=== PATIENT | female | born 1935 | race Caucasian/White ===

== ENCOUNTER 2017-11-30 21:15 | Observation (INO) | payer OTHER, MEDICARE ==
[~2017-11-30] VITALS: Ht 172.7 cm; Wt 106.7 kg
--- NOTE | 2017-11-30 21:26 | ED GI/GU/ABDOMINAL COMPLAINT ---
History of Present Illness General Chief Complaint: Nausea, Vomiting, Diarrhea Stated Complaint: VOMITING Source: patient Exam Limitations: no limitations Vital Signs & Intake/Output Vital Signs & Intake/Output Vital Signs Date Time Temp Pulse Resp B/P B/P Pulse O2 O2 Flow FiO2 Mean Ox Delivery Rate 12/01 0001 98.8 80 18 138/72 95 Room Air 11/300 98.6 82 18 116/58 96 Room Air Allergies Coded Allergies: Penicillins (UNKNOWN 11/30/17) Sulfa (Sulfonamide Antibiotics) (UNKNOWN 11/30/17) Tetracyclines (UNKNOWN 11/30/17) celecoxib (From CELEBREX) (UNKNOWN 11/30/17) cyclobenzaprine (From FLEXERIL) (UNKNOWN 11/30/17) hydrochlorothiazide (From DYAZIDE) (UNKNOWN 11/30/17) triamterene (From DYAZIDE) (UNKNOWN 11/30/17) Triage Note: [facility]IB[facility] WITH C/O VOMITING AND LOOSE STOOOLS X2 DAYS. PT REPORTS SEVERAL EPISODES OF VOMITING TODAY AND YESTERDAY, UNABLE TO KEEP FOOD/LIQUIDS DOWN. PT ALSO REPORTS INCONTINENT FREQUENT LOOSE STOOLS. DENIES ABD PAIN,CP, SOB. REPORTS WEAKNESS AND MILD DIZZINESS Triage Nurses Notes Reviewed? yes ? N Is pt currently ? No Onset: Gradual Duration: day(s): Timing: recent history Quality/Severity: vomiting Location: generalized abdomen Radiation: no radiation Associated Symptoms: nausea/vomiting HPI: 82 yo woman with severe diarrhea x 1 day, watery, without blood. She notes also vomiting that began 2 days ago, unrelenting. "I can't keep anything down." She notes no fever, chills, dysuria, chest pain. She is otherwise well. Past History Travel History Traveled to [place] past 21 day No Medical History Any Pertinent Medical History? see below for history Cardiovascular: hypertension Gastrointestinal: diverticulosis Endocrine: diabetes Surgical History Surgical History: appendectomy, cholecystectomy Family History Hx Contributory? No Review of Systems Review of Systems Constitutional: Reports: no symptoms. EENTM: Reports: no symptoms. Respiratory: Reports: no symptoms. Cardiovascular: Reports: no symptoms. GI: Reports: no symptoms. Genitourinary: Reports: no symptoms. Musculoskeletal: Reports: no symptoms. Skin: Reports: no symptoms. Neurological/Psychological: Reports: no symptoms. Hematologic/Endocrine: Reports: no symptoms. Immunologic/Allergic: Reports: no symptoms. All Other Systems: Reviewed and Negative Physical Exam Physical Exam Gastrointestinal: normal bowel sounds, soft, non-tender, see below Comments: Review of Systems - except as otherwise noted in HPI Physical Exam Physical Exam General Appearance: well developed/nourished, no apparent distress Head: atraumatic, normal appearance Eyes: Bilateral: normal appearance. Ears, Nose, Throat: normal pharynx, normal ENT inspection Neck: normal inspection, supple, full range of motion Respiratory: normal breath sounds, chest non-tender, no respiratory distress, quiet respiration, lungs clear Cardiovascular: regular rate/rhythm Gastrointestinal: normal bowel sounds, soft, non-tender, no organomegaly Back: normal inspection, normal range of motion Extremities: normal inspection, normal capillary refill, normal range of motion, no edema Neurologic/Psych: no motor/sensory deficits, awake, alert, oriented x 3 Skin: intact, normal color, warm/dry Core Measures ACS in differential dx? No Sepsis Present: No Sepsis Focused Exam Completed? No Progress Differential Diagnosis: viral syndrome vs food poisoning vs other. Plan of Care: Orders Procedure Date/time Status Clear Liquid Diet 12/01 B Active Patient Data 12/02 27 Active Saline Lock 12/[address] in observation 12/01 24 Active Misc Message 12/01 24 Active ED Holding Orders 12/01 24 Active Vital Signs 12/01 24 Active Code Status 12/01 24 Active TROPONIN LEVEL 11/30 2126 Complete LIPASE 11/30 2126 Complete HEPATIC FUNCTION PANEL 11/30 2126 Complete CBC WITHOUT DIFFERENTIAL 11/30 2126 Complete BASIC METABOLIC PANEL 11/30 2126 Complete AMYLASE 11/30 2126 Complete EKG 11/30 2126 Active Laboratory Tests 11/30/17 2140: Anion Gap 15, Estimated GFR 43 L, BUN/Creatinine Ratio 21.7, Glucose 155 H, Calcium 10.4 H, Total Bilirubin 0.6, Direct Bilirubin 0.2, AST 21, ALT 36, Alkaline Phosphatase 55, Troponin I < 0.01, Total Protein 6.5, Albumin 4.0, Amylase 50, Lipase 37, CBC w Diff NO MAN DIFF REQ, RBC 4.58, MCV 90.8, MCH 30.2, MCHC 33.3, RDW 13.9, MPV 7.3 L, Gran % 84.7 H, Lymphocytes % 10.3 L, Monocytes % 4.6, Eosinophils % 0.2, Basophils % 0.2, Absolute Granulocytes 12.5 H, Absolute Lymphocytes 1.5, Absolute Monocytes 0.7 H, Absolute Eosinophils 0, Absolute Basophils 0 Diagnostic Imaging: Viewed by Me: Radiology Read, CT Scan. Discussed w/RAD: Radiology Read, CT Scan. Radiology Impression: PATIENT: SANDRA SEARS PRESENT AGE: 75 PATIENT ACCOUNT NO: [id number] : [birth year] LOCATION: ER ORDERING PHYSICIAN: Angelito Hopkins MD SERVICE DATE: 11/30/17 EXAM TYPE: RAD - XRY-PORTABLE CHEST XRAY EXAMINATION: XR PORTABLE CHEST CLINICAL INFORMATION: Vomiting. Dyspnea. COMPARISON: Chest x-ray of 12/05/[address] of 10/27/2017. TECHNIQUE: Portable frontal view of the chest was obtained. FINDINGS: The cardiomediastinal silhouette is stable with mild cardiomegaly. The lungs are normally and symmetrically expanded. No focal consolidation, changes of congestion or pleural effusions. No pneumothorax. No evidence of pneumomediastinum. Aortic arch calcifications are noted. No acute osseous abnormality. Degenerative changes are seen at the bilateral acromioclavicular joints. IMPRESSION: No acute pulmonary process. DICTATED BY: Hawk Hubbard MD DATE /TIME DICTATED:11/30/172152 WATCH INSPECTOR:ERIN DATE/TIME TRANSCRIBED: 11/30/172152 CONFIDENTIAL, DO NOT COPY WITHOUT APPROPRIATE AUTHORIZATION. < Electronically signed in Other Vendor System> SIGNED BY: Hawk Hubbard MD 01/10, PATIENT: KAMRYN COLE PRESENT AGE: 82 PATIENT ACCOUNT NO: [id number] : 35 LOCATION: [facility] ORDERING PHYSICIAN: Angelito Hopkins MD SERVICE DATE: 11/30/17 EXAM TYPE: CAT - CT ABD & PELVIS W/O IV CONTRAS EXAMINATION: CT ABDOMEN AND PELVIS WITHOUT CONTRAST CLINICAL INFORMATION: Abdominal pain. Diarrhea. COMPARISON: None TECHNIQUE: Multidetector volumetric imaging was performed from the superior aspect of the liver through the pubic symphysis. Sagittal and coronal reformatted images were obtained on the technologist's workstation. DLP: 1233 mGy-cm FINDINGS: LUNG BASES: Small thin-walled cyst in the right lower lobe. The lung bases are clear. Coronary artery calcifications. Elevated right hemidiaphragm. LIVER, GALLBLADDER , AND BILIARY TREE: The liver is normal in size, shape, and attenuation. No focal hepatic lesion or biliary ductal dilatation is present. Cholecystectomy. PANCREAS: Unremarkable. SPLEEN: Unremarkable. ADRENAL GLANDS: Unremarkable. KIDNEYS AND URETERS: The kidneys are normal in size, shape, and attenuation. No hydronephrosis, hydroureter, or calculi seen. No perinephric stranding. There is a left lower pole 3.3 cm cyst. There is an adjacent subcentimeter hyperattenuating lesion. Tiny exophytic right lower pole cyst. BLADDER: Unremarkable. GASTROINTESTINAL TRACT: Moderate to large hiatal hernia. The small bowel is normal in caliber. No obstruction. No small bowel wall thickening. Colonic diverticulosis is noted. No evidence of diverticulitis. There is an enterocolic anastomosis in the right upper quadrant. No free air. Small volume of pelvic free fluid. ABDOMINAL WALL: Prominent fat-containing umbilical hernia. Mild skin thickening in the infraumbilical region. LYMPH NODES: Normal. VASCULAR : Normal caliber aorta with moderate atherosclerotic calcification. PELVIC VISCERA: The uterus and adnexa are unremarkable. OSSEOUS STRUCTURES: No acute or suspicious osseous abnormality. Mild degenerative changes of the hips. Multilevel degenerative changes throughout the spine. There is a mild compression deformity of the L2 vertebral body of uncertain chronicity, although likely chronic. IMPRESSION: No acute findings of the abdomen or pelvis. No acute inflammatory changes. Colonic diverticulosis without diverticulitis. Small volume of nonspecific free fluid seen in the abdomen and pelvis. Moderate to large hiatal hernia. DICTATED BY: Neno Alfaro MD DATE/TIME DICTATED:11/30 WATCH INSPECTOR:ERIN DATE/TIME TRANSCRIBED:11/30/172352 CONFIDENTIAL, DO NOT COPY WITHOUT APPROPRIATE AUTHORIZATION. <Electronically signed in Other Vendor System> SIGNED BY: Neno Alfaro MD 12/01/17 0000 Initial ED EKG: sinus, no acute changes. Departure Departure Disposition: STILL A PATIENT Condition: Stable Clinical Impression Primary Impression: Diarrhea Secondary Impressions: Dehydration, Hyperkalemia, Hyponatremia, Vomiting Referrals: Yudy Grant MD (PCP/Family) Departure Forms: Customer Survey General Discharge Information Observation Note Spoke With: Gustavo Cooper MD Patient In: Non-ED OBS Care Area Rationale for Observation: My rational for observation is as follows . pt with hyponatremia, elevated bun/cr in context of vomiting and diarrhea... pt merits iv fluids, electrolyte management.
[2017-11-30 21:58] LABS: ABSOLUTE BASOPHIL COUNT 0 /CUMM (0.0-0.2); ABSOLUTE EOSINOPHIL COUNT 0 /CUMM (0.0-0.7); ABSOLUTE GRANULOCYTE CT 12.5 /CUMM (1.4-6.5); ABSOLUTE LYMPH COUNT 1.5 /CUMM (1.2-3.4); ABSOLUTE MONOCYTE COUNT 0.7 /CUMM (0.10-0.60); BASOPHIL % 0.2 % (0.0-2.0); EOSINOPHIL % 0.2 % (0-5); GRANULOCYTE % 84.7 % (42.2-75.2); HEMATOCRIT 41.6 % (37-47); MEAN CORPUSCULAR HGB 30.2 PG (27.0-31.0); MEAN CORPUSCULAR HGB CONC 33.3 G/DL (33.0-37.0); MEAN CORPUSCULAR VOLUME 90.8 FL (81.0-99.0); MEAN PLATELET VOLUME 7.3 FL (7.4-10.4); PLATELET COUNT 355 /CUMM (130-400); RBC DISTRIBUTION WIDTH 13.9 % (11.5-14.5); RED BLOOD CELL CT 4.58 /CUMM (4.20-5.40)
[2017-11-30 22:31] LABS: WHITE BLOOD CELL COUNT 14.8 /CUMM (4.8-10.8)
--- NOTE | 2017-11-30 22:40 | RADIOLOGY REPORT ---
EXAMINATION: XR PORTABLE CHEST CLINICAL INFORMATION: Chest pain COMPARISON: None. TECHNIQUE: AP portable apical lordotic view of the chest FINDINGS: Lungs are clear. Lung volumes are low. No consolidation, pneumothorax, or pleural effusion. Calcific atherosclerosis is present in the tortuous thoracic aorta. Heart is normal in size. Vasculature is unremarkable. 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 IMPRESSION: No acute cardiopulmonary findings
--- NOTE | 2017-12-01 | CT SCAN REPORT ---
EXAMINATION: CT ABDOMEN AND PELVIS WITHOUT CONTRAST CLINICAL INFORMATION: Abdominal pain. Diarrhea. COMPARISON: None TECHNIQUE: Multidetector volumetric imaging was performed from the superior aspect of the liver through the pubic symphysis. Sagittal and coronal reformatted images were obtained on the technologist's workstation. DLP: 1233 mGy-cm FINDINGS: LUNG BASES: Small thin-walled cyst in the right lower lobe. The lung bases are clear. Coronary artery calcifications. Elevated right hemidiaphragm. LIVER, GALLBLADDER, AND BILIARY TREE: The liver is normal in size, shape, and attenuation. No focal hepatic lesion or biliary ductal dilatation is present. Cholecystectomy. PANCREAS: Unremarkable. SPLEEN: Unremarkable. ADRENAL GLANDS: Unremarkable. KIDNEYS AND URETERS: The kidneys are normal in size, shape, and attenuation. No hydronephrosis, hydroureter, or calculi seen. No perinephric stranding. There is a left lower pole 3.3 cm cyst. There is an adjacent subcentimeter hyperattenuating lesion. Tiny exophytic right lower pole cyst. BLADDER: Unremarkable. GASTROINTESTINAL TRACT: Moderate to large hiatal hernia. The small bowel is normal in caliber. No obstruction. No small bowel wall thickening. Colonic diverticulosis is noted. No evidence of diverticulitis. There is an enterocolic anastomosis in the right upper quadrant. No free air. Small volume of pelvic free fluid. ABDOMINAL WALL: Prominent fat-containing umbilical hernia. Mild skin thickening in the infraumbilical region. LYMPH NODES: Normal. VASCULAR: Normal caliber aorta with moderate atherosclerotic calcification. PELVIC VISCERA: The uterus and adnexa are unremarkable. OSSEOUS STRUCTURES: No acute or suspicious osseous abnormality. Mild degenerative changes of the hips. Multilevel degenerative changes throughout the spine. There is a mild compression deformity of the L2 vertebral body of uncertain chronicity, although likely chronic. IMPRESSION: No acute findings of the abdomen or pelvis. No acute inflammatory changes. Colonic diverticulosis without diverticulitis. Small volume of nonspecific free fluid seen in the abdomen and pelvis. Moderate to large hiatal hernia.
--- NOTE | 2017-12-01 00:31 | History & Physical ---
Iftikhar Stark 12/01/17 0031: General Information and HPI MD Statement: I have seen and personally examined KAMRYN COLE and documented this H&P. The patient is a 82 year old F who presented with a patient stated chief complaint of []. History of Present Illness: Patient is an 82-year-old female with past medical history significant for diabetes, hypertension, hyperlipidemia, chronic back pain, and vertigo. The patient was in her usual state of health until last Friday (3 days ago) when she developed nausea and vomiting after a meal consisting of fried fish at her [facility]. As far she is aware, she is the only one who has had such symptoms. By the second day the nausea and vomiting were persisting and accompanied by fever, chills. She reports vomiting 3-4 times a day and endorses that the vomit has blood. By Friday she reports having diarrhea with which she describes as loose stool, and said it was nonstop throughout the day continuously persistent. She says she tried meclizine for the nausea but it failed to improve her symptoms. She denies any sick contacts or any recent travel. Allergies/Medications Home Med list Aspirin (Ecotrin*) 81 MG TABLET.DR 1 TAB PO DAILY heart (Reported) Fluoxetine HCl 20 MG CAPSULE 1 CAP PO DAILY depression (Reported) Fluticasone Propionate 50 MCG/ACTUATION SPRAY.SUSP 2 SPRAY NASB DAILY breathing (Reported) Furosemide (Lasix) 20 MG TABLET 1 TAB PO DAILY edema (Reported) Lisinopril 30 MG TABLET 1 TAB PO DAILY HTN (Reported) Metformin HCl (Metformin HCl ER) 750 MG TAB.ER.24H 1 TAB PO BID diabetes ( Reported) Potassium Chloride (K-Tab ER) 10 MEQ TABLET.ER 1 TAB PO DAILY supplement ( Reported) Ranitidine (Ranitidine HCl) 150 MG TABLET 1 TAB PO DAILY gerd (Reported) Simvastatin (Simvastatin*) 20 MG TABLET 1 TAB PO QPM HLD (Reported) Past History Travel History Traveled to [place] past 21 day No Medical History Neurological: dizziness EENT: macular degeneration, rhinitis Cardiovascular: hypertension Respiratory: NONE Gastrointestinal: diverticulosis Hepatic: NONE Renal: NONE Musculoskeletal: falls Psychiatric: NONE Endocrine: diabetes Blood Disorders: NONE Cancer(s): NONE 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 EENTM: Reports: no symptoms. Denies: see HPI. Cardiovascular: Reports: no symptoms. Respiratory: Reports: no symptoms. GI: Reports: diarrhea, nausea, vomiting. Genitourinary: Reports: no symptoms. Musculoskeletal: Reports: no symptoms. Skin: Reports: no symptoms. Neurological/Psychological: Reports: no symptoms. Hematologic/Endocrine: Reports: no symptoms, see HPI, bruising, bleeding, polyuria, polydipsia, other. Immunologic/Allergic: Reports: no symptoms. All Other Systems: Reviewed and Negative Exam & Diagnostic Data Last 24 Hrs of Vital Signs/I&O Vital Signs Date Time Temp Pulse Resp B/P B/P Pulse O2 O2 Flow FiO2 Mean Ox Delivery Rate 12/01 0323 97.7 97 18 156/84 99 12/01 0234 98.7 70 18 122/70 95 Room Air 12/01 0001 98.8 80 18 138/72 95 Room Air 11/30 2120 98.6 82 18 116/58 96 Room Air Intake & Output 12/01 1600 12/01 0800 12/01 0000 Intake Total 1085 Output Total Balance 1085 Intake, IV 1010 Intake, Oral 75 Patient 235 lb Weight Physical Exam General Appearance Alert, Oriented X3, Cooperative, No Acute Distress Skin No Rashes HEENT Atraumatic, PERRLA, EOMI Neck Supple Lymphatic Axillary nl, Cervical nl Cardiovascular Regular Rate, Normal S1, Normal S2 Lungs Clear to Auscultation, Normal Air Movement Abdomen Normal Bowel Sounds, Soft, No Tenderness Neurological Normal Speech Extremities No Clubbing, Normal Pulses Last 24 Hrs of Labs/Rosendo: Laboratory Tests 12/01/17 0643: Anion Gap 10, Estimated GFR 53 L, BUN/Creatinine Ratio 27.0 H, CBC w Diff NO MAN DIFF REQ, RBC 3.91 L, MCV 89.8, MCH 30.0, MCHC 33.4, RDW 13.7, MPV 7.6, Gran % 68.3, Lymphocytes % 24.5, Monocytes % 6.1, Eosinophils % 0.7, Basophils % 0.4, Absolute Granulocytes 6.7 H, Absolute Lymphocytes 2.4, Absolute Monocytes 0.6, Absolute Eosinophils 0.1, Absolute Basophils 0 11/30/17 2140: Anion Gap 15, Estimated GFR 43 L, BUN/Creatinine Ratio 21.7, Glucose 155 H, Calcium 10.4 H, Total Bilirubin 0.6, Direct Bilirubin 0.2, AST 21, ALT 36, Alkaline Phosphatase 55, Troponin I < 0.01, Total Protein 6.5, Albumin 4.0, Amylase 50, Lipase 37, CBC w Diff NO MAN DIFF REQ, RBC 4.58, MCV 90.8, MCH 30.2, MCHC 33.3, RDW 13.9, MPV 7.3 L, Gran % 84.7 H, Lymphocytes % 10.3 L, Monocytes % 4.6, Eosinophils % 0.2, Basophils % 0.2, Absolute Granulocytes 12.5 H, Absolute Lymphocytes 1.5, Absolute Monocytes 0.7 H, Absolute Eosinophils 0, Absolute Basophils 0 Microbiology 12/01 1420 STOOL: Clostridium difficile Toxin A & B - RECD Assessment/Plan Assessment: Vitals on admission were temperature 98.6, heart rate 82, respiratory rate 18, BP 116/58 and O2 sat 96% on room air. She had a WBC count of 14.8, H&H 14.8/31.6, platelet count 257, sodium 132, potassium 5.3, BUN/Cr creatinine 26/1.2 with a normal anion gap and normal LFTs. Chest x-ray and CT abdomen and pelvis were negative for any acute pathology. Problem list: 1. Gastroenteritis 2. BEVERLEY (Pre-renal) 3. Hyperkalemia 4. Hyponatremia Observe the patient and admit for 24-48 hours Keep patient on clear liquids IV hydration of normal saline Zofran as needed Hold Lasix and DOMENIC due to hyperkalemia NovoLog sliding scale and Accu-Cheks Daily BMP DVT prophylaxis Patient is DNR/DNI As Ranked By This Provider Problem List: 1. Hyperkalemia 2. Hyponatremia 3. Dehydration 4. Vomiting 5. Diarrhea Core Measures/Misc (02/09) Acute Coronary Syndrome ACS Diagnosis: No Congestive Heart Failure Congestive Heart Failure Diagnosis No Cerebrovascular Accident CVA/TIA Diagnosis: No VTE (View Protocol) VTE Risk Factors Age>40 No Mechanical VTE Prophylaxis d/t N/A MechProphylax Ordered No VTE Pharm Prophylaxis d/t NA PharmProphylax ordered Sepsis (View protocol) Sepsis Present: Yes If YES complete Sepsis Event Note If YES complete Sepsis Event Note Peggy Casas MD 12/01/17 0505: Core Measures/Misc (02/09) Sepsis (View protocol) If YES complete Sepsis Event Note If YES complete Sepsis Event Note Resident Review Statement Resident Statement: examined this patient, discussed with analysis intern, agreed with analysis intern, reviewed EMR data (avail), discussed with nursing, reviewed images Other Findings: Ms. Cole is an 82-year-old lady with past medical history significant for hypertension, hyperlipidemia, diabetes, chronic back pain, diverticulitis and lower extremity edema presents with nausea and vomiting starting 2 days ago. Per the patient, she was in her usual state of health until Friday when she started having vomiting. Vomitus is yellow in color, without any blood in she vomits almost 3-4 times a day. She also reports diarrhea which started Friday and never stopped. Her bowel movements are loose and nonbloody. She denies any fever/chills. She lists an assisted living and she mentions eating fish for lunch on Friday but does not remember if anyone else is sick with similar symptoms in the facility. She tried meclizine for nausea/vomiting without any relief. Denies being on any recent antibiotics or recent travel. Vitals on admission were temperature 98.6, heart rate 82, respiratory rate 18, BP 116/58 and O2 sat 96% on room air. She had a WBC count of 14.8, H&H 14.8/31.6, platelet count 257, sodium 132, potassium 5.3, BUN/Cr creatinine 26/1.2 with a normal anion gap and normal LFTs. Chest x-ray and CT abdomen and pelvis were negative for any acute pathology. Problem list; 1. Gastroenteritis 2. HPI; likely prerenal given vomiting and diarrhea 3. Mild hyponatremia and hyperkalemia 4. Chronic medical conditions - Observe the patient on [facility] floor for 24-48 hours - Patient received 1 L of normal saline in the ER, will hold off on further fluids. - Zofran as needed for nausea and vomiting - Hold Lasix and lisinopril for BEVERLEY and hyperkalemia. - Repeat CBC and BEP in a.m. - NovoLog sliding scale and Accu-Cheks. - Continue rest of the home medications. DVT prophylaxis; Alps and subcutaneous Lovenox Patient is DNR/DNI. Gustavo Cooper MD 12/01/17 0633: General Information and HPI MD Statement: I have seen and personally examined KAMRYN COLE and documented this H&P. The patient is a 82 year old F who presented with a patient stated chief complaint of [nausea vomiting and diarrhea]. Source of Information: patient Exam Limitations: no limitations Allergies/Medications Allergies: Coded Allergies: Penicillins (UNKNOWN 11/30/17) Sulfa (Sulfonamide Antibiotics) (UNKNOWN 11/30/17) Tetracyclines (UNKNOWN 11/30/17) celecoxib (From CELEBREX) (UNKNOWN 11/30/17) cyclobenzaprine (From FLEXERIL) (UNKNOWN 11/30/17) hydrochlorothiazide (From DYAZIDE) (UNKNOWN 11/30/17) triamterene (From DYAZIDE) (UNKNOWN 11/30/17) Past History Medical History Neurological: dizziness EENT: macular degeneration, rhinitis Cardiovascular: hypertension Respiratory: NONE Musculoskeletal: falls Endocrine: diabetes Surgical History Surgical History: appendectomy, cholecystectomy Past Family/Social History Psychosocial History ETOH Use: denies use Review of Systems Review of Systems Constitutional: Reports: see HPI. Exam & Diagnostic Data Last 24 Hrs of Vital Signs/I&O Vital Signs Date Time Temp Pulse Resp B/P B/P Pulse O2 O2 Flow FiO2 Mean Ox Delivery Rate 12/01 0323 97.7 97 18 156/84 99 12/01 0234 98.7 70 18 122/70 95 Room Air 12/01 0001 98.8 80 18 138/72 95 Room Air 11/30 2120 98.6 82 18 116/58 96 Room Air Intake & Output 12/01 0800 12/01 0000 11/30 1600 Intake Total 1000 Output Total Balance 1000 Intake, IV 1000 Patient 235 lb Weight Physical Exam General Appearance Alert, Oriented X3, Cooperative, No Acute Distress Skin No Rashes HEENT Atraumatic, PERRLA, EOMI Neck Supple Lymphatic Axillary nl, Cervical nl Cardiovascular Regular Rate, Normal S1, Normal S2 Lungs Clear to Auscultation, Normal Air Movement Abdomen Normal Bowel Sounds, Soft, No Tenderness Neurological Normal Gait, Normal Speech Last 24 Hrs of Labs/Rosendo: Laboratory Tests 11/30/17 2140: Anion Gap 15, Estimated GFR 43 L, BUN/Creatinine Ratio 21.7, Glucose 155 H, Calcium 10.4 H, Total Bilirubin 0.6, Direct Bilirubin 0.2, AST 21, ALT 36, Alkaline Phosphatase 55, Troponin I < 0.01, Total Protein 6.5, Albumin 4.0, Amylase 50, Lipase 37, CBC w Diff NO MAN DIFF REQ, RBC 4.58, MCV 90.8, MCH 30.2, MCHC 33.3, RDW 13.9, MPV 7.3 L, Gran % 84.7 H, Lymphocytes % 10.3 L, Monocytes % 4.6, Eosinophils % 0.2, Basophils % 0.2, Absolute Granulocytes 12.5 H, Absolute Lymphocytes 1.5, Absolute Monocytes 0.7 H, Absolute Eosinophils 0, Absolute Basophils 0 Microbiology 12/01 0551 STOOL: Clostridium difficile Toxin A & B - ORD Core Measures/[facility] (02/09) Sepsis (View protocol) If YES complete Sepsis Event Note If YES complete Sepsis Event Note Attending MD Review Statement Attending Statement Attending MD Statement: examined this patient, discuss w/resident/PA/RN RELIEF CHARGE, amended to note Attending Assessment/Plan: This patient is an 82-year-old white female with a significant past medical history for diabetes, hypertension and vertigo. The patient was in her usual state of health until approximately 2 days prior to admission when she developed nausea and vomiting after a meal. She was the only one who developed the symptoms. The nausea and vomiting persisted and then was accompanied by diarrhea. The patient is afebrile. She was noted to have an elevation in her white blood cell count of 14.8, her BUN and creatinine 26 over 1.2 and K at 5.3. A CT of her abdomen and pelvis did not find any acute changes. Upon my evaluation the patient felt much better and was already improving. This is more likely to be a self limited illness and the elevation in her white blood cell count and electrolyte abnormalities are likely reactive to her symptoms. Did not started on antibiotics and would treat supportively.
[2017-12-01 03:23] VITALS: BP 156/84
[2017-12-01] MEDS ORDERED: METFORMIN HCL750 M1 PO (05:54)
[2017-12-01] MEDS ORDERED: FLUOXETINE HCL20 M2 PO (05:54)
[2017-12-01] MEDS ORDERED: RANITIDINE HCL150 MG PO (05:55)
[2017-12-01] MEDS ORDERED: LISINOPRIL30 M1 PO (05:57)
[2017-12-01] MEDS ORDERED: ASPIRIN EC81 M1 PO (05:57)
[2017-12-01] MEDS ORDERED: FLUTICASONE PRO16 GM NASB (05:57)
[2017-12-01] MEDS ORDERED: K-TAB ER10 MEQ PO (05:58)
[2017-12-01] MEDS ORDERED: SIMVASTATIN20 M2 PO (05:58)
[2017-12-01] MEDS ORDERED: LASIX20 M1 PO (05:58)
--- NOTE | 2017-12-01 07:23 | PN- Housestaff ---
See Addendum Subjective Follow-up For: Nausea, vomiting, diarrhea Complaints: no complaints Subjective: Patient was seen and examined at the bedside. States the problems have resolved completely from yesterday, no complaints. Review of Systems Constitutional: Reports: no symptoms. Objective Last 24 Hrs of Vital Signs/I&O Vital Signs Date Time Temp Pulse Resp B/P B/P Pulse O2 O2 Flow FiO2 Mean Ox Delivery Rate 12/01 0323 97.7 97 18 156/84 99 12/01 0234 98.7 70 18 122/70 95 Room Air 12/01 0001 98.8 80 18 138/72 95 Room Air 11/30 2120 98.6 82 18 116/58 96 Room Air Intake & Output 12/01 1600 12/01 0800 12/01 0000 Intake Total 1085 Output Total Balance 1085 Intake, IV 1010 Intake, Oral 75 Patient 235 lb Weight Physical Exam General Appearance: Alert, Oriented X3, Cooperative, No Acute Distress Skin: No Rashes, No Breakdown Skin Temp/Moisture Exam: Warm/Dry HEENT: Atraumatic, PERRLA, EOMI Neck: Supple, No JVD, No thryomegaly Cardiovascular: Regular Rate, Normal S1, Normal S2, No Murmurs Lungs: Clear to Auscultation, Normal Air Movement Abdomen: Normal Bowel Sounds, Soft, No Tenderness, No Hepatospenomegaly Neurological: Normal Speech, Strength at 5/5 X4 Ext, Normal Tone Extremities: No Clubbing, No Cyanosis, No Edema Assessment/Plan Assessment: 82-year-old female who presents with nausea, vomiting, and diarrhea. Past medical history significant for diabetes hypertension, hyperlipidemia, chronic back pain, and vertigo. Patient was in her usual state of health until last Friday (3 days ago) when she developed nausea and vomiting after a meal consisting of fried fish at her [facility]. She states she is the only one at home who had such symptoms. While at the hospital she received IV fluids normal saline and no antibiotics. She has made full recovery and is ready for discharge today. Problem List: 1. Diarrhea 2. Vomiting 3. Dehydration Pain Ratin Pain Location: none Pain Goal: Remain pain free Pain Plan: none Tomorrow's Labs & Rationales: None Discharge Plan Discharge Disposition: STR/NH Stable for Discharge? Yes Anticipated Discharge (Day): today
[2017-12-01 08:24] LABS: ABSOLUTE BASOPHIL COUNT 0 /CUMM (0.0-0.2); ABSOLUTE EOSINOPHIL COUNT 0.1 /CUMM (0.0-0.7); ABSOLUTE LYMPH COUNT 2.4 /CUMM (1.2-3.4); ABSOLUTE MONOCYTE COUNT 0.6 /CUMM (0.10-0.60); BASOPHIL % 0.4 % (0.0-2.0); MEAN CORPUSCULAR HGB CONC 33.4 G/DL (33.0-37.0); MEAN PLATELET VOLUME 7.6 FL (7.4-10.4)
[2017-12-01 09:00] LABS: ABSOLUTE GRANULOCYTE CT 6.7 /CUMM (1.4-6.5); EOSINOPHIL % 0.7 % (0-5); GRANULOCYTE % 68.3 % (42.2-75.2); MEAN CORPUSCULAR VOLUME 89.8 FL (81.0-99.0); PLATELET COUNT 285 /CUMM (130-400); RBC DISTRIBUTION WIDTH 13.7 % (11.5-14.5); RED BLOOD CELL CT 3.91 /CUMM (4.20-5.40); WHITE BLOOD CELL COUNT 9.8 /CUMM (4.8-10.8)
[2017-12-01 09:14] LABS: HEMATOCRIT 35.2 % (37-47)
--- NOTE | 2017-12-01 10:50 | Patient Discharge Instructions ---
Discharge Instructions General Discharge Information Special Instructions: Please follow up with your PCP Diet Continue normal diet: Yes Activity Full Activity/No Limits: Yes Acute Coronary Syndrome Inclusion Criteria At DC or during hospital stay patient has or had the following: ACS DIAGNOSIS No Discharge Core Measures Meds if any: Prescribed or Continued at Discharge Meds if any: NOT Prescribed or Continued at Discharge Congestive Heart Failure Inclusion Criteria At DC or during hospital stay patient has or had the following: CHF DIAGNOSIS No Discharge Core Measures Meds if any: Prescribed or Continued at Discharge Meds if any: NOT Prescribed or Continued at Discharge Cerebrovascular accident Inclusion Criteria At DC or during hospital stay patient has or had the following: CVA/TIA Diagnosis No Discharge Core Measures Meds if any: Prescribed or Continued at Discharge Meds if any: NOT Prescribed or Continued at Discharge Venous thromboembolism Inclusion Criteria VTE Diagnosis No VTE Type NONE VTE Confirmed by (Test) NONE Discharge Core Measures - Per Current guidelines, there needs to be overlap - treatment for the first 5 days of Warfarin therapy. - If discharged on Warfarin prior to 5 days of - overlap therapy, the patient will need to be - assessed for post discharge needs including - *Post discharge parental anticoagulation - *Warfarin and/or parental anticoagulation education - *Follow up date to check INR post discharge At least 5 days overlap therapy as Inpatient No Meds if any: Prescribed or Continued at Discharge Note: Overlap Therapy is Warfarin and Anticoagulant Meds if any: NOT Prescribed or Continued at Discharge
[2017-12-01 14:31] VITALS: BP 147/72
== END 2017-12-01 15:20 ==
LOC: ERH 21:15 → ERHI 12-01 00:25 → 2NB 12-01 00:25 → ENRESERV 12-01 01:29 → 2NB 12-01 03:09 → ENPENDDIS 12-01 11:03 → 2NB 12-01 15:20
PROVIDERS: Internal Medicine; Pediatrics
DX: K52.9 Noninfective gastroenteritis and colitis, unspecified (principal); E11.9 Type 2 diabetes mellitus without complications; Z79.84 Long term (current) use of oral hypoglycemic drugs; I10 Essential (primary) hypertension; E78.5 Hyperlipidemia, unspecified; M54.9 Dorsalgia, unspecified; R42 Dizziness and giddiness; Z79.82 Long term (current) use of aspirin; H35.30 Unspecified macular degeneration; J31.0 Chronic rhinitis; Z91.81 History of falling; Z87.891 Personal history of nicotine dependence; E86.0 Dehydration; N17.9 Acute kidney failure, unspecified; E87.5 Hyperkalemia; E87.1 Hypo-osmolality and hyponatremia; R19.7 Diarrhea, unspecified
CPT/HCPCS: 6040; 36592; 71045; 74176; 82436; 93005; 93010; 96360; 96361; 96372; G0378; J1644; J3101